=== PATIENT | male | born 1940 | race Caucasian/White ===

== ENCOUNTER 2016-04-20 12:02 | Emergency (ER) | payer OTHER | END 2016-04-20 12:10 | disposition left against medical advice (07) | LOC: CED 12:02 | DX: R60.0 Localized edema (principal) ==

== ENCOUNTER 2016-04-20 12:34 | Emergency (ER) | payer OTHER ==
[2016-04-20 12:43] VITALS: RESP 16; TEMP 97.9; O2SAT 96
--- NOTE | 2016-04-20 13:36 | EDPHY ---
H & P Time Seen by Provider: 04/20/16 13:04 HPI/ROS: Chief complaint. Left calf swelling HPI. 75-year-old male here with left calf swelling for the past 3-4 days. He recently flew from [place] and is going to fly home tomorrow. He was riding his bike 4 days ago and felt a twinge like a the small torn muscle poor pulled muscle in his left calf. Since he has been [place] he has been walking a lot and it has gotten much more swollen and tight. No symptoms above the knee. No chest discomfort or trouble breathing. He is on Coumadin because of aortic valve replacement ROS Constitutional. no fever/chills, no weakness Eyes. no problems with vision ENT. no sore throat, no nasal drainage Cardiovascular. no chest pain Respiratory. no shortness of breath, no cough Abdominal. no abdominal pain, no nausea/vomiting, no diarrhea . no problems urinating MS. Left calf pain and swelling Skin. no rash Lymph. no swollen glands Neuro. no headache, no dizziness, no difficulty walking or with speech Past Medical/Surgical History: Aortic valve replacement, dyslipidemia, hypertension Social History: , non smoker, no alcohol Physical Exam: General Appearance: Alert well-developed male mild distress vital signs stable Eyes: Pupils equal and round no pallor or injection. ENT, Mouth: Mucous membranes are moist. Respiratory: There are no retractions, lungs are clear to auscultation. Cardiovascular: Regular rate and rhythm. Gastrointestinal: Abdomen is soft and nontender, no masses, bowel sounds normal. Neurological: Awake and alert, sensory and motor exams grossly normal. Skin: Warm and dry, no rashes. Musculoskeletal: Neck is supple nontender. Extremities left calf is tensely swollen and tender. No symptoms above the knee. Distal motor vascular sensitivity is intact Psychiatric: Patient is oriented X 3, there is no agitation. Constitutional: Initial Vital Signs Temperature (C) 36.6 C 04/20/16 12:35 Heart Rate 73 04/20/16 12:35 Respiratory Rate 16 04/20/16 12:35 Blood Pressure 133/79 H 04/20/16 12:35 O2 Sat (%) 96 04/20/16 12:35 O2 Delivery Mode Room Air Allergies/Adverse Reactions: No Known Allergies Allergy (Unverified 04/20/16 12:43) Home Medications: Medication Instructions Recorded Atorvastatin Calcium [Lipitor 10 10 mg PO DAILY 04/20/16 mg (*)] Carvedilol [Coreg (*)] 3.125 mg PO 04/20/16 Furosemide [Lasix 20 MG (*)] 20 mg PO 04/20/16 Lisinopril [Zestril 5 mg (*)] 5 mg PO 04/20/16 Terazosin HCl [Hytrin 5 MG (*)] 5 mg PO 04/20/16 Warfarin Sodium [Coumadin 4MG (*)] 4 mg PO DAILY16 04/20/16 Zolpidem Tartrate [Ambien 5MG (*)] 2.5 mg PO HS 04/20/16 Medical Decision Making - Diagnostics Imaging: Ultrasound of the calf reviewed by me and interpreted and discussed with Dr. Avila shows a large hematoma in the calf but no evidence for DVT ED Course/Re-evaluation: Re-evaluation 230 patient is stable. Patient and I discussed his INR as well as ultrasound results. We discussed treatment plan including criteria for return and importance of follow-up and further evaluation upon return to [place] Differential Diagnosis: Likely this is calf hematoma secondary to calf muscle injury and then increasing ambulation. I also considered DVT - Data Points Laboratory Results: 04/20/16 13:38 PT 34.7 SEC H SEC (12.0-15.0) INR 3.38 H (0.83-1.16) APTT 39.9 SEC H SEC (23.0-38.0) Departure - Departure Disposition: Home, Routine, Self-Care Clinical Impression: Calf hematoma Condition: Good Instructions: Hematoma (ED) Additional Instructions: You have a large hematoma or collection of blood in your calf. There is no evidence for blood clot in your veins. Your INR today is 3.38. Hold your Coumadin tonight. Ice and elevation to your calf as much as possible. Follow up with your physician upon return home to [place] tomorrow Referrals: JUAN TOTH [Other] - As per Instructions
[2016-04-20 14:11] LABS: APTT 39.9 SEC (23.0-38.0); INR 3.38 (0.83-1.16); PROTIME(PATIENT) 34.7 SEC (12.0-15.0)
[2016-04-20 14:39] VITALS: BP 142/85; PULSE 67
== END 2016-04-20 14:38 | disposition home or self-care (01) ==
DX: M79.81 Nontraumatic hematoma of soft tissue (principal); I10 Essential (primary) hypertension; Z79.01 Long term (current) use of anticoagulants